=== PATIENT | female | born 1965 | race Caucasian/White ===

== ENCOUNTER 2016-11-29 13:24 | Emergency (ER) | payer BC ==
[2016-11-29 13:41] VITALS: BP 135/67
--- NOTE | 2016-11-29 13:46 | UC ---
Lower Extremity/Ankle HPI - HPI Summary HPI Summary: 51 year old female with complaints of right ankle pain. States she twisted her right ankle while walking. She is only able to bear partial weight but it causes significant pain. No obvious deformity. - History of Current Complaint Stated Complaint: ANKLE INJURY Time Seen by Provider: 11/29/16 13:39 Hx Obtained From: Patient ?: No Onset/Duration: Sudden Onset Severity Initially: Severe Severity Currently: Mild Pain Scale Used: 0-10 Numeric - 2 while at rest Aggravating Factor(s): Standing, Ambulation Alleviating Factor(s): Rest, Ice Able to Bear Weight: Yes - partial - Risk Factors Gout Risk Factors: Age Over 40 DVT Risk Factors: Negative Septic Arthritis Risk Factor: Negative - Allergies/Home Medications Allergies/Adverse Reactions: Allergies Allergy/AdvReac Type Severity Reaction Status Date / Time Adhesive Tape Allergy Intermediate Rash Verified 11/29/16 13:32 [Tegaderm Dressing] Oxycodone [From Oxycontin] Allergy DIZZY,VOMIT Verified 11/29/16 13:32 ING,CONFUSI ON ANTI-NAUSEA OR INTRATHECAL Allergy CONFUSED,WORDS Uncoded 11/29/16 13:32 MED SLURRED,NAUSEA WORSE,DIZZY, Home Medications: Home Medications Cholecalciferol [Vitamin D] 1,000 unit PO DAILY 11/29/16 [History Confirmed 06/08] PMH/Surg Hx/FS Hx/Imm Hx Previously Healthy: Yes Endocrine History Of: Denies: Diabetes Cardiovascular History Of: Denies: Hypertension, Pacemaker/ICD, Congestive Heart Failure GI/ History Of: Denies: Renal Disease Neurological History Of: Denies: TIA, CVA, Dementia, Seizures, Migraine Psychological History Of: Denies: Anxiety, Depression, Bipolar Disorder, Schizophrenia Cancer History Of: Reports: Prostate Cancer - PELVIC CA Denies: Breast Cancer - Surgical History Surgical History: Yes Surgery Procedure, Year, and Place: 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 - Family History Known Family History: Negative: Hypertension, Diabetes - Social History Occupation: Employed Full-time Lives: With Family Alcohol Use: None Substance Use Type: None Smoking Status (MU): Never Smoked Tobacco - Immunization History Most Recent Influenza Vaccination: none Review of Systems Constitutional: Negative Skin: Negative Eyes: Negative ENT: Negative Respiratory: Negative Cardiovascular: Negative Gastrointestinal: Negative Genitourinary: Negative Motor: Decreased ROM - pain with flexion and extension Neurovascular: Negative Musculoskeletal: Arthralgia - right ankle Neurological: Negative Psychological: Negative All Other Systems Reviewed And Are Negative: Yes Physical Exam Triage Information Reviewed: Yes Appearance: Well-Appearing, Well-Nourished, Pain Distress - sitting in the wheelchair Vital Signs: Initial Vital Signs Temp 98.9 F 11/29/16 13:34 Pulse 82 11/29/16 13:34 Resp 16 11/29/16 13:34 BP 135/67 11/29/16 13:34 Pulse Ox 99 11/29/16 13:34 Vital Signs Reviewed: Yes Eyes: Positive: Conjunctiva Clear. Negative: Discharge ENT: Positive: Hearing grossly normal. Negative: Nasal congestion Neck: Positive: Supple, Nontender Respiratory: Positive: Lungs clear, Normal breath sounds Cardiovascular: Positive: RRR, No Murmur Musculoskeletal: Positive: Strength Limited @ - at right ankle due to acute pain , ROM Limited @ - due to acute pain of right ankle, Edema @ - mild at lateral malleolus. Good pedal pulse of right foot. Good capillary refill of right toes. Good sensation to light touch throughout the right lower extremity. Neurological: Positive: Alert, Muscle Tone Normal Psychological: Positive: Age Appropriate Behavior - pleasant and cooperative Skin: Negative: rashes, breakdown Lower Extremity Course/Dx - Course Course Of Treatment: right ankle xray - - Differential Dx/Diagnosis Differential Diagnosis/HQI/PQRI: Contusion, Fracture (Closed), Sprain Provider Diagnoses: Right ankle sprain. Possible AVULSION INJURY of [place]. Discharge - Discharge Plan Condition: Stable Disposition: HOME Patient Education Materials: Ankle Sprain (ED), Ankle Stirrup Splint (ED), Crutch Instructions (ED) Referrals: Jazzy Zapata MD [Primary Care Provider] - Megan Maharaj MD [Medical Doctor] - 5 Days (call on Thursday to schedule an appointment for evaluation ) Additional Instructions: No weight bearing until follow up with orthopedist
--- NOTE | 2016-11-29 14:17 | RAD ---
HISTORY: Right ankle pain COMPARISONS: None VIEWS: 3, Frontal, lateral, and oblique views of the right ankle FINDINGS: BONE DENSITY: Normal. BONES: There is a small bone fragment along the dorsal aspect of the distal talus. JOINTS: There is no arthropathy. ALIGNMENT: There is no dislocation. SOFT TISSUES: There is soft tissue swelling along the forefoot OTHER FINDINGS: None. IMPRESSION: SMALL BONE FRAGMENT WITH SOFT TISSUE SWELLING ALONG THE DORSAL ASPECT OF THE TALUS SUGGESTIVE OF AN AVULSION INJURY.
== END 2016-11-29 14:50 | disposition home or self-care (01) ==
LOC: UCEAST 13:24
DX: S93.401A Sprain of unspecified ligament of right ankle, initial encounter (principal); X50.1XXA Overexertion from prolonged static or awkward postures, initial encounter; Y93.01 Activity, walking, marching and hiking; Y92.9 Unspecified place or not applicable
CPT/HCPCS: 99213; G0463